=== PATIENT | female | born 1990 | race Caucasian/White ===

== ENCOUNTER 2016-11-02 10:27 | Outpatient (CLI) | payer OTHER | END 2016-11-02 20:16 | disposition home or self-care (01) | LOC: SRD 10:27 | PROVIDERS: ATTEND Family Medicine | DX: J18.9 Pneumonia, unspecified organism (principal) | CPT/HCPCS: 71020-TC ==

== ENCOUNTER 2017-03-23 15:55 | Outpatient (CLI) | payer OTHER | END 2017-03-23 18:28 | disposition home or self-care (01) | LOC: SRD 15:55 | PROVIDERS: ATTEND Family Medicine | DX: J31.0 Chronic rhinitis (principal) | CPT/HCPCS: 70220-TC ==

== ENCOUNTER 2018-09-04 15:56 | Emergency (ER) | payer OTHER ==
[~2018-09-04] VITALS: Ht 157.5 cm; Wt 80.7 kg
[2018-09-04 16:00] VITALS: BP_SYST 144
[2018-09-04 17:43] LABS: BILIRUBIN,URINE NEGATIVE (NEGATIVE); BLOOD, URINE 2+ (NEGATIVE); CLARITY/URINE CLEAR (CLEAR); COLOR,URINE YELLOW (YELLOW); GLUCOSE,URINE NEGATIVE (NEGATIVE); KETONES,URINE NEGATIVE (NEGATIVE); LEUKOCYTE ESTERASE ,URINE 1+ (NEGATIVE); NITRITE, URINE NEGATIVE (NEGATIVE); PH,URINE 7.5 (5.0-8.0); PROTEIN URINE NEGATIVE (NEGATIVE); UROBILINOGEN,URINE 0.2 (0.2-1.0)
[2018-09-04 18:09] LABS: BACTERIA,URINE FEW /HPF (None Seen); MUCUS,URINE None Seen /LPF (None Seen)
[2018-09-04 20:50] VITALS: BP_SYST 135
[2018-09-07 10:36] LABS: CHLAMYDIA TRACHOMATIS NAA Negative (Negative)
[2018-09-07 10:37] LABS: NEISSERIA GONORRHOEAE NAA Negative (Negative)
== END 2018-09-04 20:50 | disposition home or self-care (01) ==
LOC: SED 15:56
DX: R10.30 Lower abdominal pain, unspecified (principal)
CPT/HCPCS: 36415; 81000-TC; 81025; 84702-TC; 87086; 87210-TC; 87491; 87591; 99283

== ENCOUNTER 2018-10-22 14:59 | Emergency (ER) | payer OTHER ==
[~2018-10-22] VITALS: Ht 157.5 cm; Wt 79.8 kg
--- NOTE | 2018-10-22 15:04 | NUR ---
Patient to ER bed 05 to gown for evaluation. Side rails up.
[2018-10-22 15:05] VITALS: BP_SYST 147
--- NOTE | 2018-10-22 15:10 | NUR ---
ROBERTO Rowlye at bedside examining patient.
--- NOTE | 2018-10-22 15:12 | NUR ---
Patient came into ED due to chest pain, throat pain and tightness, and SOB that she says started yesterday. Patient states that she has a hx of asthma. Patient states she has some nausea; denies V/D. Pt is A&Ox4. Pt states pain is 7/10. Will continue to monitor.
[2018-10-22] MEDS ORDERED: PREDNISONE 20 MG TABLET PO ONE (15:15)
[2018-10-22] MEDS ORDERED: IPRATROPIUM/ALBUTEROL SULFATE 3 ML AMPUL.NEB (DUONEB) INH ONE (15:15)
[2018-10-22] MEDS ORDERED: IBUPROFEN 600 MG TABLET PO ONE (15:30)
--- NOTE | 2018-10-22 15:51 | NUR ---
Patient transported to radiology via gurney, accompanied by library information technician.
--- NOTE | 2018-10-22 16:04 | NUR ---
Returned from radiology, back to [facility].
--- NOTE | 2018-10-22 16:43 | NUR ---
Patient given written and verbal discharge instructions and verbalizes understanding. ER MD discussed with patient the results and treatment provided. Patient in stable condition. ID arm band removed. Rx of prednisone given. Patient educated on pain management and to follow up with PMD. Pain Scale 0/10. Opportunity for questions provided and answered. Medication side effect fact sheet provided.
[2018-10-22 16:44] VITALS: BP_SYST 134
== END 2018-10-22 16:43 | disposition home or self-care (01) ==
LOC: SED 14:59
DX: J45.901 Unspecified asthma with (acute) exacerbation (principal)
CPT/HCPCS: 70360; 71045; 94640; 99283; J7512; J7620